=== PATIENT | male | born 1985 | race African-American/Black ===

== ENCOUNTER 2018-07-08 09:32 | Emergency (ER) | payer OTHER ==
[~2018-07-08] VITALS: Ht 172.7 cm; Wt 95.5 kg
[2018-07-08 09:36] VITALS: Ht 172.7 cm; Wt 95.5 kg
[2018-07-08 09:53] LABS: BASOPHILS 0.2 % (0-2); EOSINOPHILS 1.5 % (0-7); HEMATOCRIT 43.9 % (42.0-54.0); HEMOGLOBIN 15.9 g/dL (13.5-17.5); LYMPHOCYTES 42.5 % (15-50); MCH 31.6 pg (26.0-34.0); MCHC 36.2 g/dL (31.0-37.0); MCV 87.3 fL (80.0-100.0); MEAN PLATELET VOLUME 10.2 fL (7.4-10.4); MONOCYTES 7.6 % (2-11); NEUTROPHILS 48.2 % (40-80); PLATELET COUNT 215 10x3/uL (130-400); RBC 5.03 10x6/uL (4.20-6.10); RDW 13.3 % (11.5-14.5); WBC 4.6 10x3/uL (4.8-10.8)
[2018-07-08 10:02] LABS: APTT 27.1 SECONDS (22.8-39.4); INR 1.04 (0.85-1.17); PROTIME 13.1 SECONDS (11.6-15.0)
[2018-07-08 10:11] LABS: ALKALINE PHOSPHATASE 55 U/L (46-116); ALT (SGPT) 34 U/L (10-68); BILIRUBIN - TOTAL 0.84 mg/dL (0.2-1.3); CALC OSMOLALITY 281 mosm/kg (275-300); CALCIUM 9.6 mg/dL (8.5-10.1); CARBON DIOXIDE 29.3 mmol/L (21.0-32.0); CHLORIDE - SERUM 105 mmol/L (98-107); CREATININE - SERUM 1.2 mg/dL (0.6-1.3); GLUCOSE 96 mg/dL (74-106); POTASSIUM - SERUM 4.2 mmol/L (3.5-5.1); PROTEIN - SERUM 7.6 g/dL (6.4-8.2); SODIUM 141 mmol/L (136-145); UREA NITROGEN 14 mg/dL (7-18); eGFR NON AFRICAN AMERICAN 75 mL/min (90-120)
[2018-07-08 10:20] LABS: CKMB 1.8 U/L (0.0-3.6); CREATINE KINASE 347 UL (21-232); MAGNESIUM - SERUM 2.1 mg/dL (1.8-2.4); TROPONIN-I < 0.017 ng/mL (0.000-0.060)
[2018-07-08 10:48] LABS: APPEARANCE CLEAR (CLEAR); BILIRUBIN NEGATIVE (NEGATIVE); COLOR YELLOW (YELLOW); GLUCOSE NEGATIVE (NEGATIVE); KETONE NEGATIVE (NEGATIVE); NITRITE NEGATIVE (NEGATIVE); PROTEIN NEGATIVE (NEGATIVE); UROBILINOGEN NORMAL (NORMAL)
[2018-07-08 10:53] LABS: UDS - AMPHET NEGATIVE QUAL (NEGATIVE); UDS - BARB NEGATIVE QUAL (NEGATIVE); UDS - BENZO NEGATIVE QUAL (NEGATIVE); UDS - COCAINE NEGATIVE QUAL (NEGATIVE); UDS - OPIATE NEGATIVE QUAL (NEGATIVE); UDS - PCP NEGATIVE QUAL (NEGATIVE); UDS - THC POSITIVE QUAL (NEGATIVE)
[2018-07-08 13:25] VITALS: BP 131/85
== END 2018-07-08 13:30 ==
LOC: D.ER 09:32
PROVIDERS: Family Medicine
DX: R07.9 Chest pain, unspecified (principal); K21.9 Gastro-esophageal reflux disease without esophagitis; J45.909 Unspecified asthma, uncomplicated